=== PATIENT | female | born 1950 | race American Indian/Alaskan Native ===

== ENCOUNTER 2016-09-22 15:01 | Outpatient (CLI) | payer MEDICARE, OTHER | END 2016-09-22 15:02 | disposition home or self-care (01) | LOC: LABHHL 15:01 | PROVIDERS: ATTEND Surgery | DX: N63 Unspecified lump in breast (principal); I25.10 Atherosclerotic heart disease of native coronary artery without angina pectoris; I10 Essential (primary) hypertension; E78.00 Pure hypercholesterolemia, unspecified; J44.9 Chronic obstructive pulmonary disease, unspecified; J18.9 Pneumonia, unspecified organism; F17.200 Nicotine dependence, unspecified, uncomplicated | CPT/HCPCS: 88305 ==